=== PATIENT | male | born 1995 | race Caucasian/White ===

== ENCOUNTER 2018-01-22 12:36 | Emergency (ER) | payer BC ==
[~2018-01-22] VITALS: Ht 162.5 cm; Wt 58.1 kg
[2018-01-22 12:39] VITALS: BP 149/88
[2018-01-22] MEDS ORDERED: PREDNISONE10 MG PO (12:59)
[2018-01-22] MEDS ORDERED: FLONASE ALLERG9.9 ML NAS (13:04)
[2018-01-22] MEDS ORDERED: CLARITIN10 MG PO (13:04)
== END 2018-01-22 13:32 | disposition home or self-care (01) ==
LOC: ED 12:36
DX: R21 Rash and other nonspecific skin eruption (principal); R03.0 Elevated blood-pressure reading, without diagnosis of hypertension